=== PATIENT | male | born 1935 | race Caucasian/White ===

== ENCOUNTER → 2018-12-29 16:18 | Outpatient (CLI) | payer MEDICARE, SELFPAY ==
[2018-12-29 17:38] LABS: Anion Gap 7 (5-15); BUN 61 mg/dL (7-18); BUN/Creat Ratio 14.7 RATIO (10-20); Calcium,Total 8.6 mg/dL (8.5-10.1); Chloride 110 mmol/L (98-107); Creatinine, Serum 4.16 mg/dL (0.70-1.30); EST Glomerular Filtration Rate 15 mL/min (>60); Est Glom Filt Rate - Afr Amer 18 mL/min (>60); Glucose 105 mg/dL (74-106); Potassium 4.8 mmol/L (3.5-5.1); Sodium Level 141 mmol/L (136-145)
== END ==
PROVIDERS: Family Provider Family Medicine; PCP Family Medicine; Referring Provider Urology; Visit Provider Urology
DX: C61 Malignant neoplasm of prostate (principal)
CPT/HCPCS: 36415; 80048

== ENCOUNTER → 2019-01-09 08:15 | Outpatient (CLI) | payer MEDICARE, SELFPAY ==
--- NOTE | 2019-01-09 08:19 | NM_ITS ---
CLINICAL: 83-year-old male with reported history of carcinoma of the prostate. WHOLE BODY 99m Tc MDP RADIONUCLIDE BONE SCINTIGRAPHY COMPARISON: None available FINDINGS: Following the intravenous administration of 25.0 mCi of 99m Tc MDP, whole body bone images reveal: 1. Increased radiopharmaceutical concentration is identified in the acromioclavicular compartments of both shoulders, the medial glenohumeral and sternoclavicular compartment of the right shoulder, posterior midline sacrum, the bilateral elbow articulations, upper cervical spine posteriorly on the left. 2. The remaining skeletal structures are scintigraphically unremarkable with the right-left renal images and urinary bladder activity identified. The right kidney demonstrates prominent collecting system activity extending from the renal pelvis to the mid ureter. Minimal visualization of the left renal unit is defined. NM/Bone Scan Whole Body IMPRESSION: 1. The increase in radiopharmaceutical concentration identified in the bilateral shoulders, sacrum, right and left elbows, the cervical spine is commensurate with degenerative arthritis. 2. There is no definitive typical scintigraphic evidence of diffuse axial skeletal metastatic disease on the current examination. Electronically Signed: Carlos Lockhart DO at 9:53 EDT Tel , Service support ,
== END ==
PROVIDERS: Family Provider Family Medicine; PCP Family Medicine; Referring Provider Urology; Visit Provider Urology
DX: C61 Malignant neoplasm of prostate (principal)
CPT/HCPCS: 78306

== ENCOUNTER → 2019-01-10 14:39 | Outpatient (CLI) | payer MEDICARE, SELFPAY ==
--- NOTE | 2019-01-10 14:41 | CT_ITS ---
STUDY: CT ABDOMEN AND PELVIS WITHOUT CONTRAST REASON FOR EXAM: Male, 83 years old. Hematuria and prostate cancer. Abdominal aortic aneurysms. RADIATION DOSAGE (If Supplied By Facility): CTDIvol = ( 6.05 ) mGy, DLP = ( 284.07 ) mGycm TECHNIQUE: Transaxial images were obtained from the dome of the diaphragm to the symphysis pubis without oral contrast, and without intravenous contrast. Sagittal and coronal images were reconstructed. Individualized dose optimization techniques were used for this CT. COMPARISON: None. FINDINGS: Grossly normal appearance of the liver. Sludge or tiny stones are seen in the gallbladder. Unremarkable pancreas. Unremarkable spleen. Adrenal glands unremarkable. Right kidney shows marked hydronephrosis and hydroureter down to the level of the right iliac artery, where the ureter tapers to a more normal diameter. It inserts into the bladder where there is an area of marked bladder wall thickening. Stricture is possible. Left kidney shows vascular calcifications. No hydronephrosis. Markedly tortuous aorta with heavily calcified plaque and fusiform aortic aneurysm. The entire aorta appears involved from the level of the diaphragmatic hiatus. Below the level of the renal arteries is the greatest diameter, of approximately 5.4 cm. Marked tortuosity and aneurysm of the iliac arteries. Right iliac artery has a greatest diameter of 3.6 cm. Left iliac artery has a greatest diameter of 5.3 cm. Evaluation of the GI tract is limited by absence of oral contrast. Cannot exclude stomach wall thickening. No dilated loops of bowel or evidence for obstruction. Cannot exclude segmental thickening of the flynn of the small or large bowel. Cannot exclude enteritis or colitis. Moderate diffuse fecal retention. Diverticulosis without definite diverticulitis. Appendix within normal limits. In the pelvis, grossly negative rectum. The prostate is not enlarged. Radiotherapy seeds are seen in the prostate. Marked bladder wall thickening, with especially thick right bladder wall measuring as much as 2 cm and lobulated. Bladder neoplasm is possible. Cystoscopy is recommended. Normal abdominal wall. There are diffuse degenerative changes of the visualized lumbar spine. CT/Abdomen/Pelvis without Cont IMPRESSION: Possible cholelithiasis. Marked right hydronephrosis down to a very thickened right bladder wall, neoplasm is possible. Cystoscopy is recommended. 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 Electronically Signed: Shad Moran MD at 15:05 EDT , Service support ,
== END ==
PROVIDERS: Family Provider Family Medicine; PCP Family Medicine; Referring Provider Urology; Visit Provider Urology
DX: R79.89 Other specified abnormal findings of blood chemistry (principal)
CPT/HCPCS: 74176

== ENCOUNTER → 2019-02-08 08:26 | Outpatient (CLI) | payer MEDICARE, SELFPAY ==
[2019-02-08] VITALS (9 sets, daily range): BP systolic 146–197; BP diastolic 49–84; PULSE 43–56; RESP 12–19; TEMP 36.5; O2SAT 93–100
[2019-02-08 08:50] LABS: Platelet Count 125 K/mm3 (150-450)
--- NOTE | 2019-02-08 08:50 | CT_ITS ---
PROCEDURE: CT guided, percutaneous, right nephrostomy under conscious sedation. DATE OF EXAMINATION: February 08, 2019. INDICATION: Male, 83 years old. Moderate to severe right hydronephrosis. PHYSICIAN: Mark Grullon CONSENT: The risks, benefits and alternatives to the procedure were explained to the patient, and the patient agreed to the procedure and signed the consent. SEDATION: Conscious sedation. 0.5 mg Versed IV. 100 mcg fentanyl IV. STERILE BARRIER TECHNIQUE: The following sterile barrier precautions were used during the procedure: hand hygiene; use of 2% chlorhexidine aseptic; use of a cap, mask, sterile gown, sterile gloves, sterile full body drape, and a large sterile sheet. PROCEDURE/TECHNIQUE The patient was taken into the CT suite and placed in the prone position. A short time out was performed. Limited and directed noncontrast CT was performed through the kidneys. An intended percutaneous site in the right posterolateral flank was identified and marked. The soft tissues in this region were then thoroughly prepped and draped in the usual sterile manner. Local superficial anesthesia was obtained with approximately 1.5 cc of 2% lidocaine without epinephrine. A small dermatotomy was made. Next, a 5 Luxembourgish coaxial system consisting of a central sharp metallic stylette and an outer catheter were advanced from a posterolateral approach through the soft tissues and tip placed within the hydronephrotic collection under CT fluoroscopy. The sharp central stylette was removed and a wire was placed through the access catheter and coiled within the hydronephrotic region. The access catheter was then discontinued. Successive dilatation to 10 Luxembourgish was performed over the wire. A 10 Luxembourgish general purpose multi hole drainage device was then advanced over the wire and placed within the hydronephrotic collection. The wire was removed, and the pigtail formed. The externalized portion of the catheter was sutured at the skin. Thereafter, the external portion of the catheter was was connected to a drainage bag. The entry site was then sterilely dressed. CT/Abscess/Fistula/Sinus Tract IMPRESSION: Successful, CT-guided, percutaneous nephrostomy tube placement under conscious sedation. Complication: The patient tolerated the procedure well. There was no evident immediate post procedure complication. Electronically Signed: Pankaj Grullon MD at 13:33 EDT , Service support ,
[2019-02-08 09:01] LABS: International Normalized Ratio 1.6; Prothrombin Time (Protime)PT. 18.5 SECONDS (11.7-14.9)
[2019-02-08 09:02] LABS: Partial Thromboplast Time 38.1 Seconds (24.1-36.2)
[2019-02-08] MEDS: fentaNYL 100 MCG/2 ML Ampul IV ×2 (10:52→11:27)
[2019-02-08] MEDS: Midazolam 2 MG/2 ML Syringe IV (10:52)
[2019-02-08 12:17] LABS: Bacteria 0 SEEN /hpf (None Seen); Mucous, Urine 0 SEEN /hpf (<or=2+)
[2019-02-08 12:20] LABS: Color, Urine Red (Yellow); Glucose, Dipstick Normal (Normal); Ketone-Dipstick 5 mg/dl (Negative); Leukocyte Esterase-Dipstick 25 /ul (Negative); Nitrite-Dipstick Negative (Negative); Occult Blood-Urine 250 /ul (Negative); Protein-Dipstick 500 mg/dl (Negative); Specific Gravity, Urine 1.015 (1.002-1.030); Urine Bilirubin Dipstick Negative (Negative); Urine Clarity Turbid (Clear); Urine Urobilinogen Normal (Normal); Urine pH 6.5 (5.0 - 8.0)
[2019-02-08 12:32] LABS: Squamous Epithelial Cells - UA 0-5 SEEN /hpf (0-5); White Blood Cells 10-25 SEEN /hpf (0-5)
[2019-02-08 12:33] LABS: Red Blood Cells-Urine > 100 SEEN /hpf (0-5)
--- NOTE | 2019-02-21 12:14 | HP.PCM_ITS ---
History and Physical Date of Admission: 02/15/19 83 yo male presents earlier than planned due to no drainage from nephrostomy tube since it was placed on 02/08/19. Only a small amt of blood in the drainage bag, and he has never drained the bag. He does get some blood on his shirt at the nephrostomy site. Since he tube was placed his primary care doctor had him get 2 units of blood. No fever or chills. Has some pain at nephrostomy site, especially if leans on it. ALLERGIES: None MEDICATIONS: Flomax 0.4 mg capsule 1 capsule PO Q HS Folic Acid Methotrexate Metoprolol Tartrate Notes: Has had the pneumonia vaccine PSH: Cystoscopy - 12/29/2018 Depolupron 1 3 4 Month - 01/12/[address] PL[address] RT DEVICE/MARKER, PROS - 2011 Transrectal Biopsy US - 2008 NON- PSH: Carotid Endarterectomy, Right - 1998 Colonoscopy Exploratory Laparotomy - 2008 Patient documented to have received pneumococcal vaccination Pneumococcal Vaccine Admin PMH: Elevated prostate specific antigen [PSA] - 12/29/2018 Other hydronephrosis - 12/08/2018 Malignant neoplasm of prostate - 2015, - 2014, - 2014, - 2012, - 2012, - 2011, - 2011 Urgency of urination - 2015, - 2014, - 2014, - 2012, - 2012 Male erectile dysfunction, unspecified - 2014 Benign prostatic hyperplasia with lower urinary tract symptoms Frequency of micturition Nocturia Unspecified urinary incontinence Urge incontinence NON- PMH: Thoracic aortic aneurysm, ruptured, Mostly watching at this time as the AAA was only 3.5. - 2008 Emphysema, unspecified Essential (primary) hypertension Gastric ulcer, unsp as acute or chronic, w/o hemor or perf Thyrotoxicosis, unsp without thyrotoxic crisis or storm Unspecified atrial fibrillation FAMILY HISTORY: Cancer - Runs in Family Hypertension - Runs in Family SOCIAL HISTORY: Marital Status: Preferred Language: Mongolian; Ethnicity: Not Or ; Race: White Current Smoking Status: Patient does not smoke anymore. Has not smoked since 11/23/2018. Tobacco Use Assessment Completed: Used Tobacco in last 30 days? Does not use smokeless tobacco. Has never drank. Does not use drugs. Drinks 3 caffeinated drinks per day. Has not had a blood transfusion. Notes: Sometimes chews,sometimes a pipe, but usually some form of tobacco daily for 55 years. REVIEW OF SYSTEMS: Constitutional: Patient reports weight loss. Patient denies fever, chills, and weight gain. Gastrointestinal: Patient denies abdominal pain, nausea/vomiting, and change in bowels. VITAL SIGNS: 02/16/2019 01:11 PM Weight 135 lb / 61.23 kg Height 68 in / 172.72 cm BP 132/74 mmHg BMI 20.5 kg/m? PHYSICAL EXAMINATION: Notes: nephrostomy tube appears to be in, small amt dried blood at lower edge of bandage, no swelling or redness or purulent drainage, the drainage bag from the nephrostomy tube has small amt dark red blood in it MULTI-SYSTEM PHYSICAL EXAMINATION: Constitutional: Thin. No physical deformities. Normally developed. Good grooming. Neurologic / Psychiatric: Oriented to time, oriented to place, oriented to person. No depression, no anxiety, no agitation. PAST DATA REVIEWED: Source Of History: Patient Records Review: Previous Hospital Records, Previous Patient Records 11/09/18 10/17/18 02/06/16 08/21/15 03/20/15 02/15/15 08/28/14 08/21/13 PSA Total PSA 7.69 7.26 6.81 ng/mL 4.83 ng/mL 3.54 3.12 ng/ml 2.66 ng/ml 0.88 PROCEDURES: None ASSESSMENT: ICD-10 Details 1 : Other hydronephrosis - N13.39 PLAN: Document Letter(s): Created for Patient: Clinical Summary Notes: I told pt and family member that I would discuss case with Dr Meek to determine next step. Answered their questions re tube, his prostate cancer, BPH, his hydro.
== END ==
PROVIDERS: Radiology Neuroradiology; Family Provider Family Medicine; PCP Family Medicine; Referring Provider Urology; Visit Provider Urology
DX: N13.30 Unspecified hydronephrosis (principal); R31.1 Benign essential microscopic hematuria
CPT/HCPCS: 50432; 20501; 36415; 77012; 81001; 85049; 85610; 85730; 99156; 99157; J7040

== ENCOUNTER → 2019-02-22 09:09 | Outpatient (CLI) | payer MEDICARE, SELFPAY ==
--- NOTE | 2019-02-22 09:10 | NM_ITS ---
CLINICAL: 83-year-old male with reported history of right kidney hydronephrosis. 99m Tc MAG3 DIURETIC RENAL SCINTIGRAPHY COMPARISON: CT of the abdomen-pelvis report 01/10/2019 FINDINGS: Following the intravenous administration of 10.4 mCi of 99m Tc MAG3, renal images reveal: 1. The flow study demonstrates delayed, decreased arterial phase distribution of the radiopharmaceutical to the bilateral kidneys. 2. Immediate static delayed nephrogram images depict delayed, decreased tracer distribution by the renal parenchyma of both kidneys. The left kidney is scintigraphically hypotrophic relative to the right renal unit. Collecting structure visualization is identified at 3.5-4 minutes following tracer injection involving the superior pole of the right kidney and approximately 7 minutes following tracer injection involving the left kidney. Washout of the radiopharmaceutical by the renal parenchyma appears qualitatively delayed in both kidneys. Persistent collecting system activity is defined in the bilateral renal units (R > L) during 21 minutes of pre-Lasix sequential image acquisition. 3. The ktalv-[id number] ratio of total renal parenchymal function was calculated to be 66/34. Furosemide 10 mg was administered intravenously. The post Lasix T 1/2 washout of the left kidney collecting system activity was calculated to be < 10 minutes and > 20 minutes regarding the right kidney collecting system activity, (normal < 10 minutes). Analysis of the post furosemide right kidney time activity curve demonstrates continued increasing count statistics. NM/Renal Scan w/ Pharm Intervent IMPRESSION: 1. There is scintigraphic evidence of bilateral renal rectum, cortical dysfunction. 2. The left kidney collecting system demonstrates a normal physiologic response to induced diuresis. The prominent right kidney collecting system demonstrates an abnormal response to Lasix administration consistent with the presence of mechanical and/or functional obstruction in the appropriate clinical context. Electronically Signed: Carlos Lockhart DO at 23:08 EDT Tel , Service support ,
== END ==
PROVIDERS: Family Provider Family Medicine; PCP Family Medicine; Referring Provider Nurse Practitioner Adult Health; Visit Provider Nurse Practitioner Adult Health
DX: N13.30 Unspecified hydronephrosis (principal)
CPT/HCPCS: 78708; A9562; J1940

== ENCOUNTER → 2019-02-27 17:23 | Outpatient (CLI) | payer MEDICARE, SELFPAY ==
--- NOTE | 2019-02-27 17:27 | CT_ITS ---
STUDY: CT ABDOMEN AND PELVIS WITHOUT CONTRAST REASON FOR EXAM: Male, 83 years old. Right hydronephrosis. Nephrostomy tube placed February 08. Check placement. RADIATION DOSAGE (If Supplied By Facility): CTDIvol = ( 6.04 ) mGy, DLP = ( 288.42 ) mGycm TECHNIQUE: Transaxial images were obtained from the dome of the diaphragm to the symphysis pubis without oral contrast, and without intravenous contrast. Sagittal and coronal images were reconstructed. Individualized dose optimization techniques were used for this CT. COMPARISON: CT of the abdomen and pelvis, January 10, 2019. FINDINGS: There are emphysematous changes of the lung bases. There is a 1.1 cm soft tissue mass in the posterior subpleural right lower lobe. No other mass or infiltrate is seen. The visualized portions of the heart are within normal limits. There is extensive coronary artery calcifications. The thoracic aorta is atherosclerotic and tortuous. Normal liver. There are gallstones in gallbladder fundus without wall thickening or inflammatory change. There is evidence of a phrygian cap variant. There is no biliary ductal dilatation. Normal spleen. Normal pancreas. Normal bilateral adrenal glands. There is a 3.2 x 3.4 x 2.6 cm exophytic cyst off the lower pole the right kidney. There is marked right hydronephrosis with large renal pelvis and ureteral dilatation to the pelvic brim where the ureter is stretched over a common iliac aneurysm. The distal ureter appears normal. No visualized right ureteral stent. Normal left kidney. Normal left ureter. Normal visualized stomach. Normal small intestine. Normal colon. The appendix is visualized and appears normal. Abdominal aorta is atherosclerotic and tortuous. Maximum diameter is 5.3 x 5.5 cm. The left common iliac artery measures 3.3 cm in diameter at its origin tapering to 2.3 cm before dilating distally to 4.5 x 5.2 cm in diameter. This tapers to the bifurcation. The left external and internal iliac arteries are atherosclerotic but of normal diameter. There is dilatation of the distal right common iliac artery which measures 3.6 x 3.3 cm in maximal diameter. The left external and internal iliac arteries are atherosclerotic but of normal diameter Normal inferior vena cava. Normal retroperitoneum. Urinary bladder is thick walled with a masslike area along the right lateral wall measuring 1.4 cm in maximum thickness. There are no filling defects. The prostate is of normal size. There is no pelvic lymphadenopathy. No free air or free fluid is seen within the peritoneal cavity. Normal abdominal wall. There are diffuse degenerative changes of the visualized lumbar spine and bilateral hips. CT/Abdomen/Pelvis without Cont IMPRESSION: 1. No visualized ureteral stent. 2. Marked right hydronephrosis and ureterectasis of the pelvic brim where the ureter is stretched over a right common iliac artery aneurysm. 3. Tortuous aneurysmal abdominal aorta and bilateral common iliac arteries as described above. This appears stable. 4. Right urinary bladder mass. This is thought to contribute to the right hydronephrosis. 5. No other major interval change. Electronically Signed: Lai Gaona DO at 18:02 EDT Tel [phone], Service support ,
== END ==
PROVIDERS: Family Provider Family Medicine; PCP Family Medicine; Referring Provider Nurse Practitioner Adult Health; Visit Provider Nurse Practitioner Adult Health
DX: N13.30 Unspecified hydronephrosis (principal)
CPT/HCPCS: 74176

== ENCOUNTER → 2019-03-02 15:50 | Outpatient (CLI) | payer MEDICARE, SELFPAY ==
[2019-03-02 16:46] LABS: Hematocrit 29.6 % (40-54); Hemoglobin 8.7 g/dl (13.0-16.5); Mean Corp Hgb Conc 29.4 g/gl (32-36); Mean Corpuscular Hgb 26.8 pg (27.0-32.0); Mean Corpuscular Volume 91.1 fL (80-94); Mean Platelet Vol. 9.3 fl (6.2-12.0); Platelet Count 107 K/mm3 (150-450); RBC Distribution Width SD 60.5 fl (35.1-43.9); Red Blood Count 3.25 M/mm3 (4.6-6.2); White Blood Count 9.2 K/mm3 (4.4-11.0)
[2019-03-02 16:50] LABS: Scan Indicated on CBC? Y/N NO
[2019-03-02 17:23] LABS: Anion Gap 4 (5-15); BUN 54 mg/dL (7-18); BUN/Creat Ratio 14.3 RATIO (10-20); Calcium,Total 9.1 mg/dL (8.5-10.1); Chloride 115 mmol/L (98-107); Creatinine, Serum 3.78 mg/dL (0.70-1.30); EST Glomerular Filtration Rate 16 mL/min (>60); Est Glom Filt Rate - Afr Amer 20 mL/min (>60); Glucose 125 mg/dL (74-106); Sodium Level 141 mmol/L (136-145)
[2019-03-02 22:32] LABS: Potassium 6.2 mmol/L (3.5-5.1)
== END ==
PROVIDERS: Family Provider Family Medicine; PCP Family Medicine; Referring Provider Urology; Visit Provider Urology
DX: C61 Malignant neoplasm of prostate (principal); N13.30 Unspecified hydronephrosis
CPT/HCPCS: 36415; 80048; 84153; 85027

== ENCOUNTER 2019-03-02 17:47 | Emergency (ER) | payer MEDICARE, SELFPAY ==
[2019-03-02 17:48] VITALS: BP 137/65; PULSE 63; RESP 18; TEMP 36.4; O2SAT 100; BMI 18.6
--- NOTE | 2019-03-02 18:15 | EKG12_ITS ---
Test Reason : ABNORMAL LABS Blood Pressure : / mmHG Vent. Rate : 064 BPM Atrial Rate : 064 BPM P-R Int : 172 ms QRS Dur : 090 ms QT Int : 396 ms P-R-T Axes : 038 -26 048 degrees QTc Int : 408 ms Normal sinus rhythm Minimal voltage criteria for LVH, may be normal variant Nonspecific ST abnormality Abnormal ECG Confirmed by VICENTA GENTILE, NEYMAR ([id number]), editor index ARSEN HUTCHISON ([id number]) on 03/06/2019 4:19:23 PM Referred By: Confirmed By:NEYMAR YADAV MD
--- NOTE | 2019-03-02 18:21 | NURSING ---
NO OLD EKGS
--- NOTE | 2019-03-02 18:58 | ED.VISSUMM ---
- ER Visit Summary Date of Service: 03/02/19 Chief Complaint: [Elevated potassium] History of Present Illness: The patient is a 83 M [presents the emergency department after having blood work that showed elevated potassium today. Patient was seen by Dr. Meek today who ordered blood work and noted that his creatinine was elevated as well as elevated potassium of 6.4. Patient has history of prostate cancer. Patient had a nephrostomy tube placed to the right kidney as it is obstructed about a month ago and that was removed today because it was not felt to be in proper positioning. Patient overall states he does not feel poorly. He denies any chest pain or shortness of breath.] Physical Examination: [HEENT-PERRLA, EOMI. Cranial nerves II through XII grossly intact. TMs clear. Mucous membranes moist. No adenopathy. Cardiovascular-regular rate and rhythm without murmur or ectopy Lungs-clear to auscultation, chest wall stable without crepitus or subcu emphysema Abdomen-normoactive bowel sounds, soft, nontender, no rebound or rigidity, no peritoneal signs. Extremities-intact ?4, normal range of motion, normal pulses, atraumatic] Test Results: [CBC with differential showed a white count of 8.9, hemoglobin 8.5, hematocrit 27, platelets 116. Chemistry showed a sodium 142, potassium 6.3, chloride 115, CO2 22, glucose 86, BUN 54, creatinine 4.01.] EKG obtained showed sinus rhythm with a ventricular rate of [address] changes and peak T waves. Emergency Department Course and Treatment: [Patient was medicated with normal saline. Patient was given calcium chloride as well as sodium bicarb and insulin and dextrose. Patient was given Kayexalate.] Treatment Plan: [Patient is requesting to be transferred to [facility] for admission and further work-up. I discussed case with a Dr. Calzada who accepted transfer the patient.] I was called the patient's room at which time patient requested to be discharged to home and he does not want to go to [facility] at this time. Patient understands my concern about his hyperkalemia and renal failure and he understands I could be life-threatening and lead to due to cardiac arrhythmia. Patient understands this and states that he has to put his affairs in order at home and that he will have his family member taken to [facility] tomorrow. Patient is of sound mind and he can repeat back my concerns to him. Patient is wishing to sign out AGAINST MEDICAL ADVICE. Patient has capacity to do this. Disposition: [Patient signed out AGAINST MEDICAL ADVICE. Patient understands he may return to the emergency department at any time and I recommended that he immediately come back to the emergency department or go to [facility] for further care. Impression: [Acute renal failure Hyperkalemia History of prostate cancer] This note was generated with TabbedOut dictation software. It may contain incorrect words, spelling, and punctuation that were not noted in review of the chart prior to signing ED Disposition - Plan for ED Patient: Referrals: Jose G Dykes MD [Primary Care Provider] -
[2019-03-02] MEDS: 0.9% Normal Saline 1,000 ML 150 ML IV ×2 (19:10→21:09)
[2019-03-02 19:11] VITALS: BP 174/85; RESP 16; TEMP 36.9; O2SAT 99
[2019-03-02 19:53] LABS: Absolute Lymphocyte Count 1.54 X10^3/ul (0.83-4.51); Absolute Neutrophil Count 5.9 X10^3/uL (2.0-7.7); Basophil# 0.04 X10^3/uL; Basophil% 0.5 % (0-1); Eosinophil# 0.37 X10^3/uL; Eosinophils% 4.2 % (0-5); Hematocrit 27.7 % (40-54); Hemoglobin 8.5 g/dl (13.0-16.5); Lymphocyte # 1.54 X10^3/ul (4.0); Lymphocyte % 17.4 % (19-41); Mean Corp Hgb Conc 30.7 g/gl (32-36); Mean Corpuscular Hgb 27.9 pg (27.0-32.0); Mean Corpuscular Volume 90.8 fL (80-94); Mean Platelet Vol. 9.5 fl (6.2-12.0); Monocyte# 0.96 X10^3/uL; Monocyte% 10.8 % (0-10); Neutrophil # 5.93 X10^3/uL (2.7-7.7); Platelet Count 116 K/mm3 (150-450); RBC Distribution Width SD 60.4 fl (35.1-43.9); Red Blood Count 3.05 M/mm3 (4.6-6.2); White Blood Count 8.9 K/mm3 (4.4-11.0)
[2019-03-02 19:54] LABS: POSITIVE COUNT NO; POSITIVE DIFFERENTIAL NO; POSITIVE MORPHOLOGY NO
[2019-03-02 20:01] LABS: Anion Gap 5 (5-15); BUN 54 mg/dL (7-18); BUN/Creat Ratio 13.5 RATIO (10-20); Calcium,Total 8.8 mg/dL (8.5-10.1); Chloride 115 mmol/L (98-107); Creatinine, Serum 4.01 mg/dL (0.70-1.30); EST Glomerular Filtration Rate 15 mL/min (>60); Est Glom Filt Rate - Afr Amer 18 mL/min (>60); Estimated Creatinine Clearance 11.09 ml/min; Glucose 86 mg/dL (74-106); Sodium Level 142 mmol/L (136-145)
--- NOTE | 2019-03-02 20:01 | ED.RN ---
lab called with critical lab results. Potassium level 6.8. Dr. Ovalle made aware no new orders at this time
[2019-03-02 20:32] VITALS: BP 152/85; PULSE 66; RESP 16; O2SAT 100
[2019-03-02] MEDS: Dextrose 50%-Water 25 GM/50 ML DISP.SYRIN IV (21:10)
[2019-03-02] MEDS: Sodium Bicarbonate 8.4% 50 ML Syringe 50 MEQ IV (21:10)
[2019-03-02] MEDS: Calcium Chloride 1 GM/10 ML Syringe IV (21:10)
[2019-03-02] MEDS: Insulin Lispro 100 UNIT/ML INSULN.PEN IV (21:10)
[2019-03-02] MEDS: Sodium Polystyrene Sulfonate 15 GM/60 ML UDC 30 GM PO (21:43)
--- NOTE | 2019-03-02 21:58 | ED.DEP ---
ED Disposition - Plan for ED Patient: Instructions: ED Insufficiency Renal, ED Renal Failure Chronic, ED Potassium Excess Referrals: Jose G Dykes MD [Primary Care Provider] - Additional Instructions: Return to ER or go To [facility] as soon as possible. Your kidney function will continue to worsen and Potassium will continue to increase which can lead to heart rhythm problems and
[2019-03-02 22:03] VITALS: BP 161/87; PULSE 87; RESP 16; O2SAT 96
[2019-03-02 22:33] LABS: Potassium 6.3 mmol/L (3.5-5.1)
== END 2019-03-02 22:04 | disposition home or self-care (01) ==
LOC: ED 18:57
PROVIDERS: Emergency Provider Emergency Medicine; Family Provider Family Medicine; PCP Family Medicine
DX: N17.9 Acute kidney failure, unspecified (principal); E87.5 Hyperkalemia; Z85.46 Personal history of malignant neoplasm of prostate; Z53.21 Procedure and treatment not carried out due to patient leaving prior to being seen by health care provider; Z72.0 Tobacco use; N13.30 Unspecified hydronephrosis
CPT/HCPCS: 36415; 80048; 84153; 85025; 85027; 93005; 96361; 96374; 96375; 99285; J7030; A4216